=== PATIENT | female | born 1940 | race Two or more races ===

== ENCOUNTER 2017-12-07 08:41 | Outpatient (CLI) | payer OTHER | END 2017-12-07 15:00 | disposition home or self-care (01) | LOC: MRI 08:41 | DX: M25.561 Pain in right knee (principal) | CPT/HCPCS: 73721 ==

== ENCOUNTER 2021-01-07 09:57 | Outpatient (CLI) | payer OTHER | END 2021-01-07 10:02 | disposition home or self-care (01) | LOC: SONOGRAMA 09:57 | PROVIDERS: ATTEND Pathology Anatomic Pathology & Clinical Pathology | DX: D34 Benign neoplasm of thyroid gland (principal); E04.1 Nontoxic single thyroid nodule; E04.8 Other specified nontoxic goiter ==

== ENCOUNTER 2021-04-10 10:54 | Outpatient (CLI) | payer OTHER | END 2021-04-10 11:06 | disposition home or self-care (01) | LOC: RAD 10:54 | PROVIDERS: ATTEND Orthopaedic Surgery | DX: M25.561 Pain in right knee (principal); M25.562 Pain in left knee ==

== ENCOUNTER 2021-09-09 09:19 | Outpatient (CLI) | payer OTHER | END 2021-09-09 09:21 | disposition home or self-care (01) | LOC: TOM 09:19 | PROVIDERS: ATTEND Specialist | DX: R07.81 Pleurodynia (principal); I11.9 Hypertensive heart disease without heart failure; R05.9 Cough, unspecified ==

== ENCOUNTER 2022-05-30 08:53 | Outpatient (CLI) | payer OTHER | END 2022-05-30 09:02 | disposition home or self-care (01) | LOC: RAD 08:53 | PROVIDERS: ATTEND Orthopaedic Surgery | DX: M25.561 Pain in right knee (principal); M25.562 Pain in left knee ==

== ENCOUNTER 2022-07-22 09:07 | Outpatient (CLI) | payer OTHER | END 2022-07-22 09:17 | disposition home or self-care (01) | LOC: SONOGRAMA 09:07 | DX: E04.2 Nontoxic multinodular goiter (principal); I10 Essential (primary) hypertension; E78.2 Mixed hyperlipidemia ==

== ENCOUNTER 2022-08-25 13:07 | Outpatient (CLI) | payer OTHER | END 2022-08-25 13:08 | disposition home or self-care (01) | LOC: NUCLEAR 13:07 | PROVIDERS: ATTEND General Practice | DX: M81.0 Age-related osteoporosis without current pathological fracture (principal) ==

== ENCOUNTER 2022-09-24 09:44 | Outpatient (CLI) | payer OTHER | END 2022-09-24 09:52 | disposition home or self-care (01) | LOC: SONOGRAMA 09:44 | DX: D49.2 Neoplasm of unspecified behavior of bone, soft tissue, and skin (principal) ==

== ENCOUNTER 2022-10-20 08:45 | Outpatient (CLI) | payer OTHER | END 2022-10-20 08:50 | disposition home or self-care (01) | LOC: RAD 08:45 | PROVIDERS: ATTEND General Practice | DX: M54.50 Low back pain, unspecified (principal) ==

== ENCOUNTER 2023-04-21 10:20 | Outpatient (CLI) | payer OTHER | END 2023-04-21 10:27 | disposition home or self-care (01) | LOC: RAD 10:20 | PROVIDERS: ATTEND Orthopaedic Surgery | DX: M25.561 Pain in right knee (principal); M25.562 Pain in left knee; M25.572 Pain in left ankle and joints of left foot; M25.512 Pain in left shoulder ==

== ENCOUNTER 2023-08-21 09:32 | Outpatient (CLI) | payer OTHER | END 2023-08-21 09:39 | disposition home or self-care (01) | LOC: RAD 09:32 | PROVIDERS: ATTEND Orthopaedic Surgery | DX: M25.561 Pain in right knee (principal) ==

== ENCOUNTER 2023-12-07 14:08 | Outpatient (CLI) | payer OTHER | END 2023-12-07 14:11 | disposition home or self-care (01) | LOC: SONOGRAMA 14:08 | PROVIDERS: ATTEND Pathology Anatomic Pathology & Clinical Pathology | DX: D34 Benign neoplasm of thyroid gland (principal); E07.89 Other specified disorders of thyroid; E04.1 Nontoxic single thyroid nodule ==

== ENCOUNTER 2024-05-19 09:00 | Outpatient (CLI) | payer OTHER | END 2024-05-19 09:04 | disposition home or self-care (01) | LOC: RAD 09:00 | PROVIDERS: ATTEND Orthopaedic Surgery | DX: M25.512 Pain in left shoulder (principal) ==

== ENCOUNTER 2024-11-16 07:04 | Outpatient (CLI) | payer OTHER | END 2024-11-16 07:20 | disposition home or self-care (01) | LOC: RAD 07:04 | PROVIDERS: ATTEND Orthopaedic Surgery | DX: M25.561 Pain in right knee (principal); M25.562 Pain in left knee; I10 Essential (primary) hypertension; E11.8 Type 2 diabetes mellitus with unspecified complications; E04.1 Nontoxic single thyroid nodule | CPT/HCPCS: 73721 ==

== ENCOUNTER 2025-04-14 09:16 | Outpatient (CLI) | payer OTHER | END 2025-04-14 09:18 | disposition home or self-care (01) | LOC: RAD 09:16 | PROVIDERS: ATTEND Orthopaedic Surgery | DX: M25.561 Pain in right knee (principal); M25.562 Pain in left knee ==